=== PATIENT | male | born 1960 | race Caucasian/White ===

== ENCOUNTER → 2018-08-06 | Outpatient (CLI) | payer OTHER ==
[~2018-08-06] MED LIST: CHOL10003 PO; FENO160T PO; GABA300C10 PO; GLIP10TA13 PO; IBUP-1223 PO; LOSA50TA14 PO; ROSU20TA PO
[2018-08-06 10:00] LABS: BASOPHILS # (AUTO) 0.04 x10^3/uL (0-0.1); BASOPHILS % (AUTO) 1 % (0-1); EOSINOPHILS # (AUTO) 0.22 x10^3/uL (0-0.4); EOSINOPHILS % (AUTO) 3 % (1-7); LYMPHOCYTES # (AUTO) 2.75 x10^3/uL (1-3.4); LYMPHOCYTES % (AUTO) 41 % (22-44); MD NO; MEAN CORPUSCULAR HEMOGLOBIN 31.7 pg (27.5-34.5); MEAN CORPUSCULAR HGB CONC 34.7 g/dL (33.2-36.2); MEAN CORPUSCULAR VOLUME 91.3 fL (81-97); MEAN PLATELET VOLUME 8.7 fL (7.4-10.4); MONOCYTES # (AUTO) 0.51 x10^3/uL (0.2-0.8); MONOCYTES % (AUTO) 8 % (2-9); NEUTROPHILS # (AUTO) 3.21 x10^3/uL (1.8-6.8); NEUTROPHILS % (AUTO) 48 % (42-75); PLATELET COUNT 212 x10^3/uL (130-400); RED BLOOD COUNT 5.58 x10^6/uL (4.38-5.82)
[2018-08-06 10:06] LABS: MICROSCOPIC NOT IND
[2018-08-06 10:08] LABS: CULTURE INDICATED? NO
[2018-08-06 10:09] LABS: ALANINE AMINOTRANSFERASE 61 U/L (12-78); ANION GAP 5 mmol/L (5-15); CALCIUM 9.1 mg/dL (8.5-10.1); CHLORIDE 106 mmol/L (98-107); CREATININE 1.02 mg/dL (0.7-1.3)
[2018-08-06 10:11] LABS: ALKALINE PHOSPHATASE 98 U/L (45-117); BILIRUBIN,TOTAL 1.4 mg/dL (0.2-1.0); TOTAL PROTEIN 7.6 g/dL (6.4-8.2)
[2018-08-06 10:47] LABS: INTERNATIONAL NORMALIZED RATIO 1.01 (0.93-1.1); PROTHROMBIN TIME 10.7 Seconds (9.6-11.5)
== END | disposition home or self-care (01) ==
LOC: STAR 08:49
PROVIDERS: ATTEND Neurological Surgery
DX: Z01.818 Encounter for other preprocedural examination (principal); I10 Essential (primary) hypertension; E11.9 Type 2 diabetes mellitus without complications
CPT/HCPCS: 36415; 71046; 80053; 81003; 85025; 85610; 85730; 93005

== ENCOUNTER 2018-08-12 05:21 | Inpatient (IN) | payer OTHER ==
[~2018-08-12] VITALS: Ht 177.8 cm; Wt 109.8 kg
[2018-08-12 05:59] VITALS: BP 174/92
[2018-08-12] MEDS ORDERED: LACTATED RINGERS 1,000 ML IV SCH (05:59)
[2018-08-12] MEDS ORDERED: FENTANYL PF 250 MCG/5ML ONE (06:26)
[2018-08-12] MEDS ORDERED: MIDAZOLAM 1 MG/ML, 2ML ONE (06:26)
[2018-08-12] MEDS ORDERED: BUPIVACAINE/PF-EPI 0.5% 1:200K ONE (06:33)
[2018-08-12] MEDS ORDERED: BACITRACIN 50,000 UNIT ONE (06:34)
[2018-08-12] MEDS ORDERED: THROMBIN 5,000 UNIT VIAL TP ONE (06:34)
[2018-08-12] MEDS ORDERED: ONDANSETRON 2MG/ML, 2ML ONE (07:05)
[2018-08-12] MEDS ORDERED: GLYCOPYRROLATE 0.2MG/1ML, 5ML ONE (07:05)
[2018-08-12] MEDS ORDERED: CEFAZOLIN 1,000 MG ONE (07:05)
[2018-08-12] MEDS ORDERED: PROPOFOL 10 MG/ML, 20ML ONE (07:05)
[2018-08-12] MEDS ORDERED: ROCURONIUM 10 MG/ML,10ML ONE (07:05)
[2018-08-12] MEDS ORDERED: NEOSTIGMINE 1 MG/ML, 10ML ONE (07:05)
[2018-08-12] MEDS ORDERED: DEXAMETHASONE 4 MG/ML, 5ML ONE ×2 (07:05→14:59)
[2018-08-12] MEDS ORDERED: SUCCINYLCHOLINE 20 MG/ML, 10ML ONE (07:05)
[2018-08-12] MEDS ORDERED: PROMETHAZINE 25 MG/ML, 1ML IV PRN (08:00)
[2018-08-12] MEDS ORDERED: MEPERIDINE/PF 25MG/0.5ML IVPush PRN (08:00)
[2018-08-12] MEDS ORDERED: ALBUTEROL SULFATE 2.5 MG/3 ML NPPB PRN (08:00)
[2018-08-12] MEDS ORDERED: ONDANSETRON 2MG/ML, 2ML IVPush PRN ×2 (08:00→09:00)
[2018-08-12] MEDS ORDERED: METOCLOPRAMIDE 5 MG/ML, 2ML IV PRN (08:00)
[2018-08-12] MEDS ORDERED: hydrALAzine 20 MG/ML, 1ML IV PRN (08:00)
[2018-08-12] MEDS ORDERED: KETOROLAC 30 MG/1 ML IV PRN (08:00)
[2018-08-12] MEDS ORDERED: OXYcodone 5 MG/5 ML ORAL.SOL UDC PO PRN (08:00)
[2018-08-12] MEDS ORDERED: BISACODYL 10 MG SUPP PR PRN (09:00)
[2018-08-12] MEDS ORDERED: CYCLOBENZAPRINE 10 MG TABLET PO PRN (09:00)
[2018-08-12] MEDS ORDERED: LABETALOL 5MG/ML, 20ML IVPush PRN (09:00)
[2018-08-12] MEDS ORDERED: DIPHENHYDRAMINE 50 MG CAPSULE PO PRN (09:00)
[2018-08-12] MEDS ORDERED: MAGNESIUM HYDROXIDE 8%, 30ML UDC PO PRN (09:00)
[2018-08-12] MEDS ORDERED: HYDROcodone/APAP 10/325 MG TABLET PO PRN (09:00)
[2018-08-12] MEDS ORDERED: HYDROmorphone 2 MG/ML, 1ML IVPush PRN (09:00)
[2018-08-12] MEDS ORDERED: ZOLPIDEM 5MG TABLET PO PRN (09:00)
[2018-08-12] MEDS ORDERED: CEFAZOLIN PMX 1GM/50ML 50 ML IVPB SCH (09:00)
[2018-08-12] MEDS ORDERED: PHARMACY MAY ADJ FOR RENAL FX MC PRN (09:00)
[2018-08-12] MEDS ORDERED: SENNA/DOCUSATE TABLET PO PRN (09:00)
[2018-08-12] MEDS ORDERED: DEXAMETHASONE 4 MG/ML, 1ML IVPush SCH (09:00)
[2018-08-12] MEDS ORDERED: INSULIN REGULAR 100 UNITS/ML, 3ML VIAL SQ-INSULIN PRN (09:00)
[2018-08-12] MEDS ORDERED: PROMETHAZINE 25 MG/ML, 1ML IM PRN (09:00)
[2018-08-12] MEDS ORDERED: OXYcodone 5 MG/5 ML ORAL.SOL UDC ONE (09:04)
[2018-08-12] MEDS ORDERED: FENTANYL PF 100 MCG/2ML ONE ×2 (09:05→09:36)
[2018-08-12] MEDS ORDERED: HYDROmorphone 1 MG/ML, 1ML ONE ×2 (09:05→09:36)
[2018-08-12] MEDS: HYDROmorphone 1 MG/ML, 1ML IV PRN ×5 (09:09→09:54)
[2018-08-12] MEDS: FENTANYL PF 100 MCG/2ML IV PRN ×2 (09:15→09:33)
[2018-08-12] MEDS: LABETALOL 5MG/ML, 20ML IV PRN ×2 (09:25→09:35)
[2018-08-12] MEDS ORDERED: hydrALAzine 20 MG/ML, 1ML ONE (09:58)
[2018-08-12] MEDS: CHOLECALCIFEROL 1,000 UNIT TABLET PO SCH (12:26)
[2018-08-12] MEDS: GABAPENTIN 300 MG CAPSULE PO SCH ×3 (12:27→20:42)
[2018-08-12] MEDS: LOSARTAN 50MG TABLET PO SCH (12:27)
[2018-08-12] MEDS: SODIUM CHLORIDE FLUSH 10ML SYR IVF SCH ×2 (12:29→20:43)
[2018-08-12] MEDS: NS + 20MEQ KCL 1,000 ML IV SCH (12:29)
[2018-08-12 12:34] VITALS: BP 134/84
[2018-08-12] MEDS: INSULIN REGULAR 100 UNITS/ML, 3ML VIAL SQ-INSULIN SCH ×4 (13:45→20:43)
[2018-08-12] MEDS: OXYcodone/APAP 5/325MG TABLET PO PRN ×2 (15:05→22:44)
[2018-08-12] MEDS: CEFAZOLIN PMX 1GM/50ML 50 ML IVPB SCH ×2 (15:05→22:44)
[2018-08-12 18:37] VITALS: BP 137/83
[2018-08-12] MEDS ORDERED: ATORVASTATIN 20 MG TABLET PO SCH (21:00)
[2018-08-12] MEDS ORDERED: FENOFIBRATE 54 MG TABLET PO SCH (21:00)
[2018-08-13] MEDS: NS + 20MEQ KCL 1,000 ML IV SCH (00:30)
[2018-08-13 00:35] VITALS: BP 125/78
[2018-08-13] MEDS: OXYcodone/APAP 5/325MG TABLET PO PRN ×2 (04:11→08:15)
[2018-08-13 04:14] VITALS: BP 126/76
[2018-08-13 07:40] VITALS: BP 152/84
[2018-08-13] MEDS: CHOLECALCIFEROL 1,000 UNIT TABLET PO SCH (07:44)
[2018-08-13] MEDS: LOSARTAN 50MG TABLET PO SCH (07:44)
[2018-08-13] MEDS: SODIUM CHLORIDE FLUSH 10ML SYR IVF SCH (07:45)
[2018-08-13] MEDS: GABAPENTIN 300 MG CAPSULE PO SCH (07:45)
[2018-08-13] MEDS: INSULIN REGULAR 100 UNITS/ML, 3ML VIAL SQ-INSULIN SCH ×2 (07:45→11:15)
[2018-08-13] MEDS ORDERED: CYCL-259 PO (09:53)
[2018-08-13] MEDS ORDERED: OXYC-307 PO (09:53)
== END 2018-08-13 12:05 | disposition home or self-care (01) | DRG 472 ==
LOC: ORIP 05:21 → 4NOR 11:00 → DCLOUNGE 08-13 11:42
PROVIDERS: ADMIT Neurological Surgery; ATTEND Neurological Surgery
PROC: 0RG20A0 Fusion of 2 or more Cervical Vertebral Joints with Interbody Fusion Device, Anterior Approach, Anterior Column, Open Approach (ICD-10-PCS; 2018-08-12)
PROC: 0RB30ZZ Excision of Cervical Vertebral Disc, Open Approach (ICD-10-PCS; principal; 2018-08-12 07:00)
DX: M48.02 Spinal stenosis, cervical region (principal); M50.021 Cervical disc disorder at C4-C5 level with myelopathy; M50.022 Cervical disc disorder at C5-C6 level with myelopathy; M50.023 Cervical disc disorder at C6-C7 level with myelopathy; M50.121 Cervical disc disorder at C4-C5 level with radiculopathy; E66.01 Morbid (severe) obesity due to excess calories; G47.33 Obstructive sleep apnea (adult) (pediatric); M62.830 Muscle spasm of back; I10 Essential (primary) hypertension; E11.9 Type 2 diabetes mellitus without complications; Z82.49 Family history of ischemic heart disease and other diseases of the circulatory system; Z68.34 Body mass index [BMI] 34.0-34.9, adult; M50.122 Cervical disc disorder at C5-C6 level with radiculopathy; M50.123 Cervical disc disorder at C6-C7 level with radiculopathy; Z68.35 Body mass index [BMI] 35.0-35.9, adult
CPT/HCPCS: 36415; 72040; J3490; 82962; 86850; 86900; C1713; G0378; J0690; J1100; J1170; J2250; J2405; J2704; J2710; J3010; J3480; C1762; J0330; J0360; J7120